=== PATIENT | male | born 1990 | race Caucasian/White ===

== ENCOUNTER 2016-11-14 16:30 | Emergency (ER) | payer OTHER ==
[2016-11-14 16:51] VITALS: TEMP 98.6
[2016-11-14] MEDS ORDERED: TRANEXAMIC ACID 1,000 MG in NS 500 ML IV ONE (17:57)
[2016-11-14] MEDS ORDERED: DESMOPRESSIN ACETATE 4 MCG/ML INJ IVP ONE (17:58)
[2016-11-14] MEDS ORDERED: TRANEXAMIC ACID 1,000 MG in NS 100 ML IV ONE (18:07)
--- NOTE | 2016-11-14 18:21 | EDPHY ---
H & P Stated Complaint: Left upper gum bleeding 3 days. HPI/ROS: Chief complaint: Bleeding gums History of present illness: This is a 26-year-old male with a history of von Willebrand's disease who presents to the emergency department reporting bleeding gums. Patient reports he has had persistent bleeding from the left, upper gums. This is been going on for the last 3 days. He denies any precipitating factors. He denies alleviating factors. He denies other associated signs or symptoms including no history of trauma, no systemic symptoms such as dizziness or fatigue. He has had similar problems in the past. No other bleeding reported. He has needed DDAVP and tranexamic acid in the past. Review of systems: A 10 point review of systems was obtained and other than described above was negative - Personal History Current Tetanus Diphtheria and Acellular Pertussis (TDAP): No - Medical/Surgical History Hx Asthma: No Hx Chronic Respiratory Disease: No Hx Diabetes: No Hx Cardiac Disease: No Hx Renal Disease: No Hx Cirrhosis: No Hx Alcoholism: No Hx HIV/AIDS: No Other PMH: Type 2A Von [place]ibrands - Social History Smoking Status: Never smoked - Physical Exam Exam: General Appearance: Alert, nontoxic. Eyes: Pupils equal and round no injection. Mouth: Bleeding from the gum lines are noted with clot formation along the left superior gumline. ENT: No hoarseness, no trismus, no drooling, no stridor. Respiratory: Chest is nontender, lungs are clear to auscultation. Cardiac: regular rate and rhythm. Gastrointestinal: Abdomen is soft and nontender, no masses, bowel sounds normal. Musculoskeletal: Neck is supple and nontender. Extremities have full range of motion and are nontender. Skin: No rashes or lesions. Neurologic: Alert and oriented. Ambulating without difficulty. Constitutional: Initial Vital Signs Temperature (C) 37 C 11/14/16 16:48 Heart Rate 72 11/14/16 16:48 Respiratory Rate 16 11/14/16 16:48 Blood Pressure 121/71 H 11/14/16 16:48 O2 Sat (%) 99 11/14/16 16:48 O2 Delivery Mode Room Air Allergies/Adverse Reactions: No Known Allergies Allergy (Unverified 11/14/16 16:51) Home Medications: Medication Instructions Recorded Tranexamic Acid 1,300 mg PO TID 5 Days 11/14/16 Medical Decision Making ED Course/Re-evaluation: Patient is discussed with my secondary supervising physician Dr. Devan Gomez. Patient presents to the emergency department with persistent bleeding from his gums. He does have a history of von Willebrand's. He is afebrile and vital signs are stable. An IV is established. He is given DDAVP and tranexamic acid. Patient will be discharged home on a course of tranexamic acid. Home care is discussed. He is asked to follow up with a primary care doctor for recheck. Strict return precautions are given. Patient voiced understanding and agreement with plan. - Data Points Medications Given: Discontinued Medications Tranexamic Acid 1,000 mg/ (Sodium Chloride) 510 mls @ 63.75 mls/hr IV ONCE ONE Stop: 11/15/16 01:56 Last Admin: 11/14/16 18:08 Dose: Not Given Desmopressin Acetate 17 mcg/ (Sodium Chloride) 54.25 mls @ 108.5 mls/hr IV ONCE ONE Stop: 11/14/16 18:59 Last Admin: 11/14/16 18:40 Dose: 54.25 mls Tranexamic Acid 1,000 mg/ (Sodium Chloride) 110 mls @ 660 mls/hr IV ONCE ONE Stop: 11/14/16 18:16 Last Admin: 11/14/16 18:25 Dose: 110 mls Ondansetron HCl (Zofran) 4 mg IVP EDNOW ONE Stop: 11/14/16 19:17 Last Admin: 11/14/16 19:23 Dose: 4 mg Departure - Departure Disposition: Home, Routine, Self-Care Clinical Impression: Bleeding gums Condition: Good Instructions: Bleeding Disorders (ED) Additional Instructions: Follow-up with your primary care doctor for recheck If symptoms worsen or new symptoms develop return to the emergency department for recheck Referrals: NONE *PRIMARY CARE P,. [Primary Care Provider] - As per Instructions [facility] [Outside] - As per Instructions Sanjay Kohler MD [Medical Doctor] - As per Instructions Prescriptions: Tranexamic Acid 1,300 mg PO TID 5 Days
[2016-11-14] MEDS ORDERED: NS IV ONE (18:30)
[2016-11-14] MEDS ORDERED: DESMOPRESSIN ACETATE IV ONE (18:30)
[2016-11-14] MEDS ORDERED: ONDANSETRON 4 MG/2 ML VIAL ONE (19:14)
[2016-11-14] MEDS ORDERED: ONDANSETRON 4 MG/2 ML VIAL IVP ONE (19:16)
[2016-11-14 19:24] VITALS: BP 136/79; PULSE 77; RESP 18; O2SAT 100
== END 2016-11-14 19:36 | disposition home or self-care (01) ==
DX: K06.8 Other specified disorders of gingiva and edentulous alveolar ridge (principal)
CPT/HCPCS: 96365; J2405; J2597